=== PATIENT | female | born 2000 | race Caucasian/White ===

== ENCOUNTER → 2023-12-03 16:22 | Outpatient (REF) | payer OTHER, SELFPAY | LOC: PAVMRI 16:22 | PROVIDERS: ATTENDING PHYSICIAN Physician Assistant; FAMILY PHYSICIAN Nurse Practitioner Family | DX: M25.50 Pain in unspecified joint (principal); M47.819 Spondylosis without myelopathy or radiculopathy, site unspecified; M54.50 Low back pain, unspecified; R76.9 Abnormal immunological finding in serum, unspecified | CPT/HCPCS: 72148; 72195 ==

== ENCOUNTER → 2024-05-07 19:02 | Outpatient (REF) | payer OTHER, SELFPAY | LOC: MRI 19:02 | PROVIDERS: ATTENDING PHYSICIAN Internal Medicine Rheumatology; FAMILY PHYSICIAN Nurse Practitioner Family | DX: M35.9 Systemic involvement of connective tissue, unspecified (principal); M54.50 Low back pain, unspecified | CPT/HCPCS: 74183; A9585 ==

== ENCOUNTER → 2024-12-17 07:28 | Outpatient (REF) | payer OTHER, SELFPAY ==
--- NOTE | 2024-12-17 10:27 | EEG.RPT ---
Electroencephalogram Report
Recording
Date of EE12/17/24
Type of EEG: Routine
Length of EEG recordin minutes
Done with Video Recording: Yes
Patient Status: Inpatient
Recording Conditions: Awake and Drowsy
Hyperventilation Performed: Yes
Photic Stimulation Performed: Yes
Report
LESS THAN 1 HOUR EEG INTERPRETATION:
Unremarkable EEG for age
CLINICAL CORRELATION:
A normal EEG does not rule out a diagnosis of epilepsy. If clinical suspicion for seizure persists, a prolonged recording may be warranted.
Clinical correlation is advised.
METHODS:
A 21 channel digitized electroencephalogram (EEG) was performed using the 10/20 international system of electrode placement and one-lead of ECG recorded. The Neurala quantitative EEG system was utilized.
ELECTROENCEPHALOGRAPHER IMPRESSION(S):
Quality of study
Good
Background
There was an unremarkable anterior-posterior voltage gradient of alpha frequency.
With eye opening the background activity changed to a low voltage mixture of frequencies.
There were no significant asymmetries of background activity noted.
Sleep
Drowsiness present
Hyperventilation
No activation
Photic Stimulation
No activation
ECG
Normal sinus rhythm
== END ==
LOC: EEG 07:28
PROVIDERS: ATTENDING PHYSICIAN Nurse Practitioner; FAMILY PHYSICIAN Physician Assistant
DX: R56.9 Unspecified convulsions (principal)
CPT/HCPCS: 95816

== ENCOUNTER 2025-01-25 15:25 | Emergency (ER) | payer OTHER, SELFPAY ==
[2025-01-25 15:25] VITALS: BMI 25.8
[2025-01-25 15:29] VITALS: BP 120/81
[2025-01-25 15:39] VITALS: BP 149/69
[2025-01-25 16:00] VITALS: BP 117/78
[2025-01-25 16:04] LABS: % Basophils 1.5 % (0-2); % Immature Granulocytes 0.3 % (0-0.5); % Lymphocytes 43.1 % (20.5-51.1); % Monocytes 6.1 % (1.7-9.3); Absolute Basophils 0.1 10^3/uL (0-0.2); Absolute Eosinophils 0.8 10^3/uL (0-0.7); Absolute Lymphocytes 3.4 10^3/uL (1.2-3.4); Absolute Monocytes 0.5 10^3/uL (0.1-0.6); Absolute Neutrophils 3.1 10^3/uL (1.4-6.5); Hemoglobin 14.7 g/dL (12.0-16.0); Mean Corp Hgb Conc. 35.9 g/dL (33.0-37.0); Mean Corpuscular Hgb 31.3 pg (27.0-31.0); Mean Corpuscular Volume 87.2 fL (81.0-99.0); Nucleated Red Blood Cells % 0 %; Platelet Count 326 10^3/uL (130-400); Red Cell Dist. Width 12.5 % (11.5-14.5); White Blood Cell Count 7.9 10^3/uL (4.8-10.8)
[2025-01-25 16:14] LABS: HCG, Serum Qualitative Screen Negative
[2025-01-25 16:30] LABS: ALT (SGPT) 15 U/L (0-35); AST (SGOT) 20 U/L (14-36); Albumin 4.6 g/dl (3.5-5.0); Alkaline Phosphatase 38 U/L (38-126); Blood Urea Nitrogen 7 mg/dl (7-17); Carbon Dioxide 18 mmol/L (22-30); Chloride 111 mmol/L (98-107); Estimated Creatinine Clearance 96 ml/min; Glucose 87 mg/dl (70-99); Potassium 4.2 mmol/L (3.5-5.1); Sodium 143 mmol/L (135-145); Total Bilirubin 0.3 mg/dl (0.2-1.3); Total Protein 6.8 g/dl (6.3-8.2); eGFR > 60.00
[2025-01-25 17:03] VITALS: BP 114/75
--- NOTE | 2025-01-25 17:54 | ED.GENMED ---
History of Present Illness
General
Chief Complaint: Seizure
Source: patient and family
Exam Limitations: none
Time Seen by Provider: 01/25/25 16:33
Nursing documentation reviewed up to this point in time: agreed with
History of Present Illness
History of Present Illness:
Note:
CHIEF COMPLAINT(S)
Seizure-like activity
HISTORY OF PRESENT ILLNESS
The patient is a 24-year-old female who presented with a report of seizure-like activity. According to the patient, she experienced an episode while in the car wherein her hands turned inward, she clenched her chest, clenched her jaw mom states for
about 45 seconds then she was still and 'spacey' for another minute. Patient states she remembers looking at her mom' my mind was blank.' No postictal phase described. The episode lasted about two minutes. After the episode, the patient felt
fine. She reports this being her first such episode. She states she feels back to her baseline now
The patient has a recent history of medication adjustments. She was previously on sertraline for months but was advised to discontinue it due to ineffectiveness she was being weaned off Sertraline as she was started on Cymbalta a month ago. She
reported feeling strange, confused, and experiencing a high heart rate while on duloxetine 60 mg daily. Approximately three days before this visit, she suddenly stopped taking duloxetine and started on vilazodone, currently taking 10 mg daily.
Suspect her seizure-like episode could be linked to stopping duloxetine.
CHRONIC MEDICAL CONDITIONS SIGNIFICANTLY AFFECTING CARE
Lupus
Sj�grens syndrome
SOCIAL DETERMINANTS AFFECTING HEALTH
The patient lives with her parents and does not work outside the home.
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
PAST MEDICAL HISTORY
Lupus
Sj�grens syndrome
PAST SURGICAL HISTORY
[place] teeth extraction.
SOCIAL HISTORY
The patient does not currently consume alcohol. She smokes vapes and uses cannabis occasionally, although she has not done so in weeks.
MEDICATIONS
Vilazodone, 10 mg daily
Belimumab for lupus, newly restarted
Tramadol, 100 mg four times a day for pain associated with lupus
The patient recently discontinued duloxetine 60 mg.
REVIEW OF SYSTEMS
- Neurological: Seizure-like episode described, no changes in vision reported.
- Cardiovascular: High heart rate experienced during duloxetine use.
- Respiratory: No chest pain or difficulty breathing reported.
- Gastrointestinal: Waves of nausea, no vomiting or abdominal pain described. Appetite is typically low.
- Genitourinary: No urinary symptoms reported.
- Musculoskeletal: Chronic Pain primarily in lower abdomen, lower back, knees, and wrists associated with lupus.
- General: Recent headaches which have resolved.
PROBLEM LIST
Acute:
- Seizure-like activity potentially related to medication changes.
Chronic:
- Lupus
- Sj�grens syndrome
PLAN
Monitor for any recurrent seizure-like episodes.
Review potential side effects of vilazodone and duloxetine discontinuation.
Provide reassurance regarding potential medication-related seizure activity.
Consider consultation with a neurologist if symptoms persist or recur.
DIFFERENTIAL DIAGNOSIS
The Differential Diagnosis includes, in no particular order and is not limited to:
- Seizure secondary to medication changes
- Panic attack
- Withdrawal symptom from duloxetine
- Hypoglycemia
- Electrolyte imbalance
- Complex partial seizure
- Medication side effect
Past History
Past History
ED Past Medical History: Asthma
ED Past Surgical History: None
Social History
Living: other (student)
Phy Exam
Physical Exam
Physical Exam:
PHYSICAL EXAM:
GENERAL: No acute distress. A&Ox3.- Nursing notes reviewed and vital signs reviewed.
CONSTITUTIONAL: Afebrile.
EYES: clear, conjunctivae normal
ENMT: moist mucus membranes, Pharynx nl
RESPIRATORY: Regular respirations, nonlabored, lungs clear.
CARDIOVASCULAR: Regular rate and rhythm, no murmurs, no rubs.
GI: Soft, nontender, normal BS
MUSCULOSKELETAL: Moves with ease. Well perfused.
SKIN: Warm, dry, pink
PSYCH: Normal mood and affect. Well kept, interactive and appropriate
NEUROLOGIC: Awake, alert and oriented. No focal neurological deficits
- Neurological: The patient was able to perform [id number] test without difficulty, indicating no evident neurological deficits.
Course
Orders/Labs/Results
Orders:
Orders
01/25/25 15:56
Test Result ONCE
01/25/25 15:57
Complete Blood Count/With Diff Urgent
Comprehensive Metabolic Panel Urgent
HCG, Serum Qualitative Screen Urgent
Abnormal Lab Results
01/25/25
15:57
MCH 31.3 H pg
(27.0-31.0)
Absolute Eos (auto) 0.8 H 10^3/uL
(0-0.7)
Neutrophils % 39.0 L %
(42.2-75.2)
Eosinophils % 10.0 H %
(0-6)
Chloride 111 H mmol/L
(98-107)
Carbon Dioxide 18 L mmol/L
(22-30)
01/25/25 15:57
01/25/25 15:57
Vital Signs
Initial and Last Documented VS:
Initial Vital Signs
Temp Pulse Resp BP Pulse Ox
98.3 F 161 18 120/81 97
01/25/25 15:29 01/25/25 15:29 01/25/25 15:29 01/25/25 15:29 01/25/25 15:29
Last Documented Vital Signs
Temp Pulse Resp BP Pulse Ox
98.3 F 89 17 114/75 97
01/25/25 15:29 01/25/25 18:15 01/25/25 18:15 01/25/25 17:03 01/25/25 15:29
MDM/Problems Addressed
MDM/Problems Addressed:
History is consistent with most likely side effect from her medication changes, specifically suddenly stopping the Cymbalta.
There was no postictal phase, no sign of intraoral injury, no incontinence, doubt true seizure activity
Patient is totally back to normal at this time
*Critical Care Note
Total Time (30-74mins, 75-104mins- exclusive of procedures): Not Applicable
ED Attending Note
-
Portions of this chart may have been created with voice recognition software.� Occasional wrong word or��sound alike� substitutions may have occurred due to the inherent limitations of voice recognition software.
Discharge Plan
Departure
Patient Disposition: Home (Routine Discharge)
Date of Disposition: 01/25/25
Time of Disposition: 17:56
Patient with high blood pressure during this ER visit?: No
Condition: Good
Discharge Problem:
Medication side effect
Instructions: Seizures, Adult (DC), Side effects from medicines
Prescriptions:
No Action
albuterol sulfate 2.5 MG/3 ML solution for nebulization
2.5 mg inhalation R Q4HPRN PRN (Reason: sob)
albuterol sulfate 1 PUFF HFA aerosol inhaler
1 puff inhalation R Q4HPRN PRN (Reason: sob)
mometasone-formoterol [Dulera] 1 PUFF HFA aerosol inhaler
2 puff IH BID
Referrals:
Cristy Hassan PA [Family Provider, Family Practice]
Activity Restrictions/Additional Instructions:
As we discussed, nothing worrisome in your workup here today.
The episode you experienced was most likely from abruptly stopping the Cymbalta
Be sure to wean off any of these types of medications so this doesn't happen.
Interventions
Interventions:
*Risk Screen - Suicide Last Done: 01/25/25 15:29
*General Assessment Last Done: 01/25/25 15:29
*Neglect/Abuse Screening Last Done: 01/25/25 15:29
*ED- Fall Risk Assessment Last Done: 01/25/25 15:29
*ED COVID-19 Vaccine History Last Done: 01/25/25 18:39
*Nursing Disposition Last Done: 01/25/25 18:39
ED- Cardiac Assessment Last Done: 01/25/25 16:05
ED- Neurological Assessment Last Done: 01/25/25 16:05
ED- Pulmonary Assessment Last Done: 01/25/25 16:05
Discharge Date and Time
Discharge Date/Time: 01/25/25 18:40
Print Language: LAO
== END 2025-01-25 18:40 | disposition home or self-care (01) ==
LOC: EMR 15:25
PROVIDERS: EMERGENCY PHYSICIAN Emergency Medicine; FAMILY PHYSICIAN Physician Assistant
DX: R41.0 Disorientation, unspecified (principal); T50.995A Adverse effect of other drugs, medicaments and biological substances, initial encounter; Y92.9 Unspecified place or not applicable; F12.90 Cannabis use, unspecified, uncomplicated; F17.290 Nicotine dependence, other tobacco product, uncomplicated; J45.909 Unspecified asthma, uncomplicated; Z79.899 Other long term (current) drug therapy
CPT/HCPCS: 99283; 80053; 84703; 85025